=== PATIENT | female | born 1980 | race American Indian/Alaskan Native ===

== ENCOUNTER 2018-01-22 05:53 | Day surgery (SDC) | payer MEDICARE ==
[2018-01-22] MEDS ORDERED: ANCEF/STERILE WATER 2 GM/20 ML 2 GM/20 ML SYRINGE IV NR (06:00)
[2018-01-22] MEDS ORDERED: NACL 0.9% 1000 ML 1,000 ML IV SCH (06:00)
[2018-01-22] MEDS ORDERED: NACL BACTERIOSTATIC INFILTRATI ONE (06:36)
[2018-01-22] MEDS ORDERED: SUBLIMAZE ONE (07:05)
[2018-01-22] MEDS ORDERED: DIPRIVAN 10 MG/ML IV ONE (07:05)
[2018-01-22] MEDS ORDERED: XYLOCAINE CARDIAC IV ONE (07:07)
[2018-01-22 07:08] LABS: Hematocrit 40.9 % (30.3-42.9); Hemoglobin 12.7 gm/dl (10.1-14.3); Mean Corpuscular HGB Conc 31 % (30-34); Mean Corpuscular Hemoglobin 25 pg (28-32); Mean Corpuscular Volume 80 fl (79-97); Platelet Count 187 K/mm3 (140-440); Red Cell Distribution Width 26.7 % (13.2-15.2)
[2018-01-22 07:16] LABS: INR 1.7 (0.87-1.13)
[2018-01-22] MEDS: VERSED IV NR ×2 (07:42→07:49)
[2018-01-22] MEDS ORDERED: MARCAINE 0.5% 30 ML INFILTRATI ONE (07:46)
[2018-01-22] MEDS ORDERED: HEPARIN 10,000 UNITS/10 ML ONE (07:46)
[2018-01-22] MEDS ORDERED: NACL 0.9% 250ML 500 ML ONE (07:47)
[2018-01-22] MEDS ORDERED: SODIUM BICARBONATE ONE (07:47)
--- NOTE | 2018-01-22 07:49 | Anesthesia Day of Surgery ---
Anesthesia Day of Surgery - Day of Surgery Patient Examined: Yes Patient H&P Reviewed: Yes Patient is NPO: Yes
--- NOTE | 2018-01-22 07:49 | Anesthesia Consultation ---
Anesthesia Consult and Med Hx Date of service: 01/22/18 - Airway Anesthetic Teeth Evaluation: Good ROM Head & Neck: Adequate Mental/Hyoid Distance: Adequate Mallampati Class: Class I Intubation Access Assessment: Good - Pulmonary Exam CTA: Yes - Cardiac Exam Cardiac Exam: RRR - Pre-Operative Health Status ASA Pre-Surgery Classification: ASA4 Proposed Anesthetic Plan: General - Pulmonary Hx Asthma: No COPD: No Hx Pneumonia: No - Cardiovascular System Hx Hypertension: Yes (2007) Hx Valvular Heart Disease: Yes - Central Nervous System Hx Psychiatric Problems: No - Endocrine Hx Renal Disease: Yes (PERITONEAL DIALYSIS) Hx End Stage Renal Disease: Yes - Hematic Hx Anemia: Yes - Other Systems Hx Cancer: No
[2018-01-22] MEDS ORDERED: ePHEDrine SULFATE ONE (08:01)
[2018-01-22] MEDS ORDERED: NACL P/F VIAL (10 ML) 10 ML ONE (08:02)
[2018-01-22] MEDS ORDERED: NACL 0.9% IR ONE (08:05)
[2018-01-22] MEDS ORDERED: NACL 0.9% 250ML IR ONE (08:05)
[2018-01-22] MEDS ORDERED: HEPARIN 10,000 UNITS/10 ML IR ONE (08:05)
[2018-01-22] MEDS ORDERED: MARCAINE 0.5% INFILTRATI ONE (08:05)
[2018-01-22] MEDS ORDERED: VERSED ONE (08:10)
[2018-01-22] MEDS ORDERED: NEO SYNEPHRINE/NS Syringe(OR USE) IV ONE ×2 (08:55)
[2018-01-22] MEDS ORDERED: NEO SYNEPHRINE ONE (09:05)
[2018-01-22 09:23] LABS: Anisocytosis 1+; Basophils % (Manual) 0 % (0.0-1.8); Giant Platelets 1+; RBC Morphology Normal; Total Cells Counted 100
--- NOTE | 2018-01-22 11:03 | Operative Report ---
Operative Report Operative Report: Date of procedure: 01/22/2018 Pre-operative diagnosis: End-stage renal disease history of aortic valvular replacement-mechanical Post-operative diagnosis: Same Procedure name(s): Creation of left forearm transposed proximal radial artery to basilic vein fistula Surgeon: Wilfrido Ross MD Associate Professor Of Biblical Studies: None Anesthesia: General EBL: Minimal Specimen(s): None Complications: None Findings: Adequate-sized basilic vein in the forearm, the anastomosis diminished flow in the radial artery at the wrist, excellent ulnar artery flow. Anastomosis created in the proximal radial artery to diminish the risk of arterial steal. Excellent thrill and bruit and fistula post anastomosis. Procedure: Patient in the supine position after adequate levels of general anesthesia the left arm was extended and the entire extremity was then prepped and draped using standard sterile technique. Attention was then turned over the medial aspect of the distal upper arm where the basilic vein was located using the ultrasound. The skin overlying the area and below the elbow was then anesthetized and a longitudinal incision was then made and carried down to subcutaneous tissue. The basilic vein was identified. The vein was then mobilized distally into the upper forearm. Appropriate length was mobilized such that it would swing over to the brachial artery. The vein was divided distally and hydrodilated . It proved to be quite adequate in size once this maneuver was completed. I then I made a longitudinal incision through anesthetized skin just below the antecubital fossa and carried down through the subcutaneous tissue. The fascia was divided and the brachial artery , ulnar artery, and intra-osseous artery, and radial artery were immediately identified and mobilized and encircled using vessel loops. I then created a subcutaneous tunnel and marked the vein for rotation. It was then brought into the antecubital incision in a nonrotational fashion through the tunnel. Doppler signals in the radial artery at the wrist were less than robust and its obvious that the patient had an ulnar artery dominant perfusion to the hand. I then mobilized the radial artery a little further distally noting that the proximal radial artery was of fairly robust size and had a very nice pulse. I elected to create anastomosis in the radial artery so that we would minimize the risk of arterial steal. The radial artery was then occluded and a longitudinal arteriotomy was then made. The vein and harvested at a bifurcation point thus allowing for creation of a Julia patch type anastomosis. The vein length was determined to be appropriate and an end to side anastomosis was then created using 6-0 Prolene suture and running technique. Prior to completion of the suture line antegrade and retrograde flushing was performed. Suture line was then completed and flow was reestablished initially retrograde into the fistula then antegrade. Ultimately flow was released to the hand. The fistula developed an excellent thrill and bruit. Hemostasis was excellent. I then blocked the incisions with Marcaine 0.5% plain and then each wound was closed using 3-0 Vicryl subcutaneous for Monocryl subcuticular. The skin was reapproximated using octylseal. Patient was then returned to the supine position. Excellent ulnar artery Doppler signals were noted which was identical to preop. Radial Doppler signals were marginally diminished from before. No radial pulse was palpable but this was unchanged from pre-operatively. She was then returned to the recovery room in stable condition having tolerated the procedure well. Sponge and needle counts were correct. Excellent thrill and bruit was noted in the fistula.
--- NOTE | 2018-01-22 11:10 | Short Stay Summary ---
Short Stay Documentation Date of service: 01/22/18 Narrative H&P: Admitted to the operative suite for outpatient creation of a AV fistula for hemodialysis in her left arm - History H&P: obtained from office - Allergies and Medications Current Medications: Allergies shellfish derived Allergy (Verified 01/20/18 10:22) Swelling, itching Home Medications Medication Instructions Recorded Confirmed Last Taken Type Prednisone [predniSONE (Óscar) ER 5 mg PO DAILY 04/13/14 01/22/18 01/21/18 History TAB] ALPRAZolam [Xanax TAB] 1 tab PO QDAY 01/22/18 01/22/18 01/21/18 History Aspirin [Adult Low Dose Aspirin EC] 81 mg PO QDAY 01/22/18 01/22/18 01/21/18 History Docusate Sodium [Stool Softener] 100 mg PO QDAY 01/22/18 01/22/18 01/21/18 History Gabapentin [Neurontin] 100 mg PO QDAY 01/22/18 01/22/18 01/21/18 History Hydroxychloroquine [Plaquenil] 200 mg PO QDAY 01/22/18 01/22/18 01/21/18 History Metoprolol Succinate 12.5 mg PO QDAY 01/22/18 01/22/18 01/22/18 07:30 History Midodrine [Proamatine] 5 mg PO QDAY 01/22/18 01/22/18 01/21/18 06:00 History Warfarin [Coumadin] 10 mg PO QDAY 01/22/18 01/22/18 01/21/18 History Active Medications Cefazolin Sodium (Ancef/Sterile Water 2 Gm/20 Ml) 2 gm in 20 mls @ 80 mls/hr IV PREOP NR; Protocol Stop: 01/22/18 23:59 Sodium Chloride (Nacl 0.9% 1000 Ml) 1,000 mls @ 42 mls/hr IV DIRECT JOSE Last Admin: 01/22/18 06:50 Dose: 42 mls/hr Midazolam HCl (Versed) 2 mg IV PREOP NR Stop: 01/22/18 23:59 Last Admin: 01/22/18 07:49 Dose: 1 mg - Brief post op/procedure progress note Date of procedure: 01/22/18 Pre-op diagnosis: ESRD, aortic valve replacement Post-op diagnosis: same Procedure: Date of procedure: 01/22/2018 Pre-operative diagnosis: End-stage renal disease history of aortic valvular replacement-mechanical Post-operative diagnosis: Same Procedure name(s): Creation of left forearm transposed proximal radial artery to basilic vein fistula Surgeon: Wilfrido Ross MD Cargo Surveyor: None Anesthesia: General EBL: Minimal Specimen(s): None Complications: None Findings: Adequate-sized basilic vein in the forearm, the anastomosis diminished flow in the radial artery at the wrist, excellent ulnar artery flow. Anastomosis created in the proximal radial artery to diminish the risk of arterial steal. Excellent thrill and bruit and fistula post anastomosis. Procedure: Patient in the supine position after adequate levels of general anesthesia the left arm was extended and the entire extremity was then prepped and draped using standard sterile technique. Attention was then turned over the medial aspect of the distal upper arm where the basilic vein was located using the ultrasound. The skin overlying the area and below the elbow was then anesthetized and a longitudinal incision was then made and carried down to subcutaneous tissue. The basilic vein was identified. The vein was then mobilized distally into the upper forearm. Appropriate length was mobilized such that it would swing over to the brachial artery. The vein was divided distally and hydrodilated . It proved to be quite adequate in size once this maneuver was completed. I then I made a longitudinal incision through anesthetized skin just below the antecubital fossa and carried down through the subcutaneous tissue. The fascia was divided and the brachial artery , ulnar artery, and intra-osseous artery, and radial artery were immediately identified and mobilized and encircled using vessel loops. I then created a subcutaneous tunnel and marked the vein for rotation. It was then brought into the antecubital incision in a nonrotational fashion through the tunnel. Doppler signals in the radial artery at the wrist were less than robust and its obvious that the patient had an ulnar artery dominant perfusion to the hand. I then mobilized the radial artery a little further distally noting that the proximal radial artery was of fairly robust size and had a very nice pulse. I elected to create anastomosis in the radial artery so that we would minimize the risk of arterial steal. The radial artery was then occluded and a longitudinal arteriotomy was then made. The vein and harvested at a bifurcation point thus allowing for creation of a Julia patch type anastomosis. The vein length was determined to be appropriate and an end to side anastomosis was then created using 6-0 Prolene suture and running technique. Prior to completion of the suture line antegrade and retrograde flushing was performed. Suture line was then completed and flow was reestablished initially retrograde into the fistula then antegrade. Ultimately flow was released to the hand. The fistula developed an excellent thrill and bruit. Hemostasis was excellent. I then blocked the incisions with Marcaine 0.5% plain and then each wound was closed using 3-0 Vicryl subcutaneous for Monocryl subcuticular. The skin was reapproximated using octylseal. Patient was then returned to the supine position. Excellent ulnar artery Doppler signals were noted which was identical to preop. Radial Doppler signals were marginally diminished from before. No radial pulse was palpable but this was unchanged from pre-operatively. She was then returned to the recovery room in stable condition having tolerated the procedure well. Sponge and needle counts were correct. Excellent thrill and bruit was noted in the fistula. Anesthesia: GETA Findings: see op note - Hospital course Hospital course: Benign - Disposition Condition at discharge: Stable Disposition: DC- TO HOME OR SELFCARE - Discharge Diagnoses (1) HTN (hypertension), benign Status: Chronic (2) Lupus Status: Chronic Qualifiers: Systemic lupus erythematosus organ involvement: tubulo-interstitial nephropathy (3) ESRD on peritoneal dialysis Status: Chronic Short Stay Discharge Plan Activity: advance as tolerated Weight Bearing Status: Weight Bear as Tolerated Diet: renal Wound: keep clean and dry Special Instructions: no heavy lifting Follow up with: DR CHRISS [Other] - 7 Days WILFRIDO ROSS MD [Staff Physician] - 14 Days DWIGHT GARCIA MD [Staff Physician] - 14 Days Prescriptions: HYDROcodone/ACETAMINOPHEN [Madill 5-325 Tablet] 1 each PO Q4-6H PRN #30 tablet PRN Reason: Pain
--- NOTE | 2018-01-22 12:01 | Post Anesthesia Evaluation ---
- Post Anesthesia Evaluation Patient Participated: Yes Airway Patent: Yes Stable Respiratory Function: Yes Nausea/Vomiting: No Temp > 96.8F: Yes Pain Manageable: Yes Adequeate Hydration: Yes Anesthesia Complications: No
[2018-01-22 13:29] VITALS: BP 102/60
== END 2018-01-22 12:50 | disposition home or self-care (01) ==
LOC: OR 05:53
PROVIDERS: ATTEND Surgery Vascular Surgery
DX: I12.0 Hypertensive chronic kidney disease with stage 5 chronic kidney disease or end stage renal disease (principal); N18.6 End stage renal disease; Z91.013 Allergy to seafood; Z79.82 Long term (current) use of aspirin; Z98.890 Other specified postprocedural states; Z86.718 Personal history of other venous thrombosis and embolism; Z79.01 Long term (current) use of anticoagulants; Z95.2 Presence of prosthetic heart valve
CPT/HCPCS: 36415; 36820; 80048; 85007; 85025; 85610; J0690; J1644; J2001; J2250; J2370; J2704; J3010; J7030; J7050